=== PATIENT | female | born 1995 | race Two or more races ===

== ENCOUNTER 2017-01-11 20:31 | Emergency (ER) | payer SELFPAY ==
[2017-01-11 20:41] VITALS: BP 119/68
[2017-01-11] MEDS ORDERED: LIDOCAINE 4%/TETRACAINE 0.5%/EPI 0.18% 5 ML TOPICAL SOLN TOP ONE (21:38)
--- NOTE | 2017-01-11 21:39 | ER Document Report ---
HPI - HPI Patient complains to provider of: Right thumb laceration Pain Level: 4 Context: Patient is a 21-year-old female presents emergency department with a superficial laceration on the dorsal surface of the right thumb. Patient states that she should cut herself with a knife unintentionally. Tetanus is up- to-date - REPRODUCTIVE LMP: 12/26/2016 - MUSCULOSKELETAL Musculoskeletal: REPORTS: Extremity pain - Superficial lac to R thumb Past Medical History - Social History Smoking Status: Never Smoker Chew tobacco use (# tins/day): No Frequency of alcohol use: Social Drug Abuse: None Family History: Reviewed & Not Pertinent Patient has suicidal ideation: No Patient has homicidal ideation: No Renal/ Medical History: Denies: Hx Peritoneal Dialysis Vertical Provider Document - CONSTITUTIONAL Agree With Documented VS: Yes Notes: PHYSICAL EXAM GENERAL: Alert, interacts well. HEAD: Normocephalic, atraumatic. EXTREMITIES: Moves all 4 extremities spontaneously. No edema, radial and dorsalis pedis pulses 2/4 bilaterally. No cyanosis. NEUROLOGICAL: Alert and oriented x4. Normal speech. PSYCH is normal affect, normal mood. SKIN: Warm, dry, normal turgor. 1 cm laceration superficial without active bleeding over dorsal right thumb distal phalanx - INFECTION CONTROL TRAVEL OUTSIDE OF THE [place] IN LAST 30 DAYS: No - RESPIRATORY O2 Sat by Pulse Oximetry: 99 Course - Re-evaluation Re-evalutation: 01/11/17 22:39 Patient is a 21-year-old female hemodynamic stable, no acute distress. Wound is dehisced on exam the patient declining sutures. Steri-Strip closed and splint applied. Patient educated on wound care - Vital Signs Vital signs: Temp Pulse Resp BP Pulse Ox 98.3 F 88 20 119/68 99 01/11/17 20:41 01/11/17 20:41 01/11/17 20:41 01/11/17 20:41 01/11/17 20:41 Procedures - Laceration/Wound Repair Right Thumb Wound length (cm): 1 Wound's Depth, Shape: Linear Laceration pre-procedure: Sterile PPE donned, Betadine prep applied Wound explored: Clean, No foreign body removed Wound Repaired With: Steri-strips Post-procedure wound care: Splint applied Post-procedure NV exam normal: Yes Complications: No Discharge - Discharge Clinical Impression: Laceration Condition: Good Disposition: HOME, SELF-CARE Instructions: Non-Sutured Laceration ([facility])
[2017-01-11] MEDS ORDERED: LIDOCAINE 1% INJ-PF (10 MG/ML) 30 ML SDV ONE (22:11)
== END 2017-01-11 22:50 | disposition home or self-care (01) ==
LOC: ER 20:31
PROC: 0HQFXZZ Repair Right Hand Skin, External Approach (ICD-10-PCS; principal; 2017-01-11)
DX: S61.011A Laceration without foreign body of right thumb without damage to nail, initial encounter (principal); W26.0XXA Contact with knife, initial encounter
CPT/HCPCS: 99282; 12001; J3490

== ENCOUNTER 2017-02-12 11:45 | Emergency (ER) | payer SELFPAY ==
[2017-02-12] MEDS ORDERED: ONDANSETRON 4 MG TAB.RAPDIS PO ONE (11:56)
[2017-02-12] MEDS ORDERED: OXYCODONE-ACETAMINOPHEN 5-325 MG TABLET PO ONE (11:56)
--- NOTE | 2017-02-12 12:03 | ER Document Report ---
ED Hand/Wrist Injury - General Chief Complaint: Hand Injury Stated Complaint: HAND PAIN Time Seen by Provider: 02/12/17 11:53 Mode of Arrival: Ambulatory Information source: Patient, [facility] Records Notes: 21-year-old female patient reports punching a wall several times about 1 AM this morning with her left hand. She has pain and swelling over the fourth and fifth metacarpal heads. She is concerned about a fracture. There is swelling bruising and pain over the metacarpal heads. Patient reports her last menstrual period was 01/20/2017 and there is a possibility she may have become . TRAVEL OUTSIDE OF THE [place] IN LAST 30 DAYS: No - Related Data Allergies/Adverse Reactions: No Known Allergies Allergy (Verified 02/12/17 11:45) Past Medical History - General Information source: Patient, [facility] Records - Social History Smoking Status: Never Smoker Cigarette use (# per day): No Chew tobacco use (# tins/day): No Smoking Education Provided: No Frequency of alcohol use: Occasional Drug Abuse: None Occupation: Unemployed Lives with: Friend Family History: Reviewed & Not Pertinent - Medical History Medical History: Negative Surgical Hx: Negative Review of Systems - Review of Systems Constitutional: No symptoms reported EENT: No symptoms reported Cardiovascular: No symptoms reported Respiratory: No symptoms reported Gastrointestinal: No symptoms reported Genitourinary: No symptoms reported Female Genitourinary: See HPI, Last menstrual period - 01/20/2017 Musculoskeletal: See HPI Skin: No symptoms reported Hematologic/Lymphatic: No symptoms reported Neurological/Psychological: No symptoms reported Physical Exam - Vital signs Vitals: Temp Pulse Resp BP Pulse Ox 98.4 F 98 H 18 120/75 100 02/12/17 11:56 02/12/17 11:56 02/12/17 11:56 02/12/17 11:56 02/12/17 11:56 - General General appearance: Appears well, Alert In distress: None - HEENT Head: Normocephalic, Atraumatic Eyes: Normal Pupils: PERRL Neck: Normal - Respiratory Respiratory status: No respiratory distress - Cardiovascular Rhythm: Regular Heart sounds: Normal auscultation Murmur: No - Abdominal Inspection: Normal - Back Back: Normal - Extremities General upper extremity: Other - The left hand has pain, swelling, ecchymosis over the dorsal fourth and fifth metacarpal heads. There may be some depression at the fifth metacarpal head. X-rays will show if this is the case. General lower extremity: Normal inspection - Neurological Neuro grossly intact: Yes - Psychological Associated symptoms: Normal affect, Normal mood - Skin Skin Temperature: Warm Skin Moisture: Dry Skin Color: Normal Course - Re-evaluation Re-evalutation: 02/12/17 13:34 The ulnar gutter splint was placed on the left forearm wrist and hand by the PCT. Fits well. The fingertips have good sensation capillary refill. Patient states it is quite comfortable and makes the fracture feel better. A sling was placed and that provides support and elevation of the hand and also increases the patient's comfort. - Vital Signs Vital signs: Temp Pulse Resp BP Pulse Ox 98.4 F 98 H 18 120/75 100 02/12/17 11:56 02/12/17 11:56 02/12/17 11:56 02/12/17 11:56 02/12/17 11:56 - Diagnostic Test Radiology reviewed: Image reviewed, Reports reviewed - Minimally angulated fifth metacarpal neck fracture Discharge - Discharge Clinical Impression: Boxers fracture Qualifiers: Encounter type: initial encounter Fracture type: closed Qualified Code(s): S62.339A - Displaced fracture of neck of unspecified metacarpal bone, initial encounter for closed fracture Condition: Stable Disposition: HOME, SELF-CARE Additional Instructions: Fractured Fifth Metacarpal (Boxer's) You have a fracture of the fifth metacarpal bone in the hand, often called a Boxer's Fracture. The fracture is usually caused by striking the knuckle against a hard surface -- such as hitting a wall with the fist. This fracture heals well. Some degree of angle in the fracture is perfectly acceptable, resulting in only a slightly rounder knuckle. Your physician has determined whether your fracture could benefit from "setting", and has outlined a treatment plan for you. The usual treatment is splinting for four to six weeks -- a cast is not usually necessary. At first, the injury should be elevated and ice packed. Contact the doctor at once if swelling or pain becomes severe, or if numbness develops. //////////////////////////////////////////////////////////////////////////////// //////////////////////////////////////////////////////////////////////////////// Keep the splint clean and dry. Elevate the hand as much possible. Take the pain medications as prescribed if Tylenol and ibuprofen does not control the pain. Follow-up with [facility]--call tomorrow for an appointment in the next 3-5 days. RETURN TO THE EMERGENCY ROOM IF ANY NEW OR WORSENING SYMPTOMS. Prescriptions: Hydrocodone/Acetaminophen [Hydrocodon-Acetaminophen 5-325] 1 each PO ASDIR PRN # 15 tablet PRN Reason: Referrals: [facility] ([place]) [Provider Group] - Follow up in 3-5 days (Call on Sunday for an appointment.)
--- NOTE | 2017-02-12 12:37 | RADIOLOGY REPORT (SQ) ---
EXAM DESCRIPTION: HAND LEFT 3 VIEWS COMPLETED DATE/TIME: 02/12/2017 12:25 pm REASON FOR STUDY: punched wall, LMP 01/20/17--might be COMPARISON: None. EXAM PARAMETERS: NUMBER OF VIEWS: Three views. TECHNIQUE: AP, lateral and oblique radiographic images acquired of the left hand. LIMITATIONS: None. FINDINGS: MINERALIZATION: Normal. BONES: Mildly displaced and angulated fracture 5th metacarpal head/neck. Bones otherwise intact. JOINTS: No effusions. SOFT TISSUES: Associated soft tissue swelling. OTHER: No other significant finding. IMPRESSION: 5TH METACARPAL HEAD/ NECK FRACTURE ABOVE. TECHNICAL DOCUMENTATION: JOB ID: [id number] [employer]- All Rights Reserved
[2017-02-12 13:37] VITALS: BP 117/69
== END 2017-02-12 13:37 | disposition home or self-care (01) ==
LOC: ER 11:45
DX: S62.337A Displaced fracture of neck of fifth metacarpal bone, left hand, initial encounter for closed fracture (principal); W22.01XA Walked into wall, initial encounter
CPT/HCPCS: 99283

== ENCOUNTER 2017-03-03 19:04 | Emergency (ER) | payer SELFPAY ==
--- NOTE | 2017-03-03 20:23 | ER Document Report ---
ED Medical Screen (RME) - General Chief Complaint: Vag Bleeding, +preg <12wks Stated Complaint: VAGINAL BLEEDING Time Seen by Provider: 03/03/17 20:12 Mode of Arrival: Ambulatory Information source: Patient Notes: 21-year-old female who is 6 week that presents today with complaints of lower abdominal cramping. Patient states she has had vaginal bleeding yesterday which increased today but it is still less than a normal period. Patient states her last menstrual period was on January 20. Patient is . Patient denies any nausea, vomiting, diarrhea, fevers, or passing blood clots. TRAVEL OUTSIDE OF THE [place] IN LAST 30 DAYS: No - Related Data Allergies/Adverse Reactions: No Known Allergies Allergy (Verified 02/12/17 11:45) Past Medical History - General Information source: [facility] Records Renal/ Medical History: Denies: Hx Peritoneal Dialysis Review of Systems - Review of Systems Constitutional: denies: Fever Gastrointestinal: See HPI, Abdominal pain. denies: Diarrhea, Nausea, Vomiting Female Genitourinary: See HPI, Physical Exam - Vital signs Vitals: Temp Pulse Resp BP Pulse Ox 98.2 F 87 14 127/72 H 99 03/03/17 19:19 03/03/17 19:19 03/03/17 19:19 03/03/17 19:19 03/03/17 19:19 - General General appearance: Appears well In distress: None - HEENT Head: Normocephalic, Atraumatic Eyes: Normal Conjunctiva: Normal Cornea: Normal - Respiratory Respiratory status: No respiratory distress Breath sounds: Normal - Cardiovascular Rhythm: Regular Heart sounds: Normal auscultation Murmur: No - Abdominal Inspection: Normal Distension: No distension Bowel sounds: Normal Course - Vital Signs Vital signs: Temp Pulse Resp BP Pulse Ox 98.2 F 87 14 127/72 H 99 03/03/17 19:19 03/03/17 19:19 03/03/17 19:19 03/03/17 19:19 03/03/17 19:19 Scribe Documentation - Scribe Written by Scribe:: Lesia Levi, 03/03/20172022 acting as scribe for :: Massimo
[2017-03-03 20:37] LABS: ABSOLUTE MONOCYTES (AUTO) 0.6 10^3/uL (0.1-1.4); ABSOLUTE NEUT (AUTO) 4.1 10^3/uL (1.7-8.2); BASOPHILS % (AUTO) 0.6 % (0-2); EOSINOPHILS % (AUTO) 0.7 % (0-6); HEMATOCRIT 35.7 % (36.0-47.0); LYMPHOCYTES % (AUTO) 29.4 % (13-45); MEAN CORPUSCULAR HEMOGLOBIN 30.3 pg (27.0-33.4); MEAN CORPUSCULAR HGB CONC 33.6 g/dL (32.0-36.0); MEAN CORPUSCULAR VOLUME 90 fl (80-97); MONOCYTES % (AUTO) 8.4 % (3-13); PLATELET COUNT 349 10^3/uL (150-450); RED BLOOD COUNT 3.96 10^6/uL (3.72-5.28); RED CELL DISTRIBUTION WIDTH 13.2 % (11.5-14.0); SEGMENTED NEUTROPHILS % (AUTO) 60.9 % (42-78); TOTAL CELLS COUNTED % (AUTO) 100 %; WHITE BLOOD COUNT 6.7 10^3/uL (4.0-10.5)
[2017-03-03 20:54] LABS: AMORPHOUS SEDIMENT,URINE TRACE /HPF; APPEARANCE,URINE SLIGHTLY-CLOUDY; BILIRUBIN,URINE NEGATIVE (NEGATIVE); COLOR,URINE YELLOW; GLUCOSE, URINE NEGATIVE (NEGATIVE); KETONES,URINE TRACE mg/dL (NEGATIVE); LEUKOCYTE ESTERASE,URINE NEGATIVE (NEGATIVE); NITRITE,URINE NEGATIVE (NEGATIVE); PROTEIN,URINE NEGATIVE (NEGATIVE)
--- NOTE | 2017-03-03 22:11 | ER Document Report ---
ED GI/ - General Chief Complaint: Vag Bleeding, +preg <12wks Stated Complaint: VAGINAL BLEEDING Time Seen by Provider: 03/03/17 20:12 Mode of Arrival: Ambulatory Notes: 21-year-old female patient. Second . Rh+. Spotting began yesterday. Denies any pain. Here to find out of her baby is okay. TRAVEL OUTSIDE OF THE [place] IN LAST 30 DAYS: No - HPI Patient complains to provider of: Onset: Yesterday Timing/Duration: Gradual Quality of pain: No pain Severity at maximum: Mild Severity in ED: Mild Pain Level: 0 - Related Data Allergies/Adverse Reactions: No Known Allergies Allergy (Verified 02/12/17 11:45) Past Medical History - General Information source: Patient, [facility] Records Last Menstrual Period: 01/20/17 - Social History Smoking Status: Never Smoker Chew tobacco use (# tins/day): No Frequency of alcohol use: Occasional Drug Abuse: None Lives with: Spouse/Significant other Family History: Reviewed & Not Pertinent Patient has suicidal ideation: No Patient has homicidal ideation: No - Past Medical History Cardiac Medical History: Reports: None Pulmonary Medical History: Reports: Hx Asthma EENT Medical History: Reports: None Neurological Medical History: Reports: None Endocrine Medical History: Reports: None Renal/ Medical History: Reports: None. Denies: Hx Peritoneal Dialysis Malignancy Medical History: Reports: None GI Medical History: Reports: None Musculoskeltal Medical History: Reports None Skin Medical History: Reports None Psychiatric Medical History: Reports: None Traumatic Medical History: Reports: None Review of Systems - Review of Systems Constitutional: No symptoms reported EENT: No symptoms reported Cardiovascular: No symptoms reported Respiratory: No symptoms reported Gastrointestinal: No symptoms reported Genitourinary: No symptoms reported Female Genitourinary: , Vaginal bleeding Musculoskeletal: No symptoms reported Skin: No symptoms reported Hematologic/Lymphatic: No symptoms reported Neurological/Psychological: No symptoms reported Physical Exam - Vital signs Vitals: Temp Pulse Resp BP Pulse Ox 98.2 F 87 14 127/72 H 99 03/03/17 19:19 03/03/17 19:19 03/03/17 19:19 03/03/17 19:19 03/03/17 19:19 Interpretation: Normal - General General appearance: Appears well, Alert - HEENT Head: Normocephalic, Atraumatic Eyes: Normal Pupils: PERRL - Respiratory Respiratory status: No respiratory distress Chest status: Nontender Breath sounds: Normal Chest palpation: Normal - Cardiovascular Rhythm: Regular Heart sounds: Normal auscultation Murmur: No - Abdominal Inspection: Normal Distension: No distension Bowel sounds: Normal Tenderness: Nontender Organomegaly: No organomegaly - Back Back: Normal, Nontender - Extremities General upper extremity: Normal inspection, Nontender, Normal color, Normal ROM , Normal temperature General lower extremity: Normal inspection, Nontender, Normal color, Normal ROM , Normal temperature, Normal weight bearing. No: Bess's sign - Neurological Neuro grossly intact: Yes Cognition: Normal Orientation: AAOx4 [place] Coma Scale Eye Opening: Spontaneous [place] Coma Scale Verbal: Oriented Gael Coma Scale Motor: Obeys Commands [place] Coma Scale Total: 15 Speech: Normal Motor strength normal: LUE, RUE, LLE, RLE Sensory: Normal - Psychological Associated symptoms: Normal affect, Normal mood - Skin Skin Temperature: Warm Skin Moisture: Dry Skin Color: Normal Course - Re-evaluation Re-evalutation: 03/03/17 22:10 Is a pleasant well-appearing 21-year-old female in no acute distress with no significant abdominal pain. Rh+ based on labs. 03/03/17 22:11 Ultrasound shows intrauterine . 6 weeks. Positive heart movement. Strict warning signs were given regarding threatened miscarriage. Has OB follow-up. Will DC at this time. 03/03/17 22:25 Laboratory 03/03/17 03/03/17 03/03/17 20:26 20:26 20:26 WBC 6.7 RBC 3.96 Hgb 12.0 Hct 35.7 L MCV 90 MCH 30.3 MCHC 33.6 RDW 13.2 Plt Count 349 Seg Neutrophils % 60.9 Lymphocytes % 29.4 Monocytes % 8.4 Eosinophils % 0.7 Basophils % 0.6 Absolute Neutrophils 4.1 Absolute Lymphocytes 2.0 Absolute Monocytes 0.6 Absolute Eosinophils 0.0 Absolute Basophils 0.0 Beta HCG, Quant 16138.00 H Total Beta HCG POSITIVE Urine Color Urine Appearance Urine pH Ur Specific [place] Urine Protein Urine Glucose (UA) Urine Ketones Urine Blood Urine Nitrite Urine Bilirubin Urine Urobilinogen Ur Leukocyte Esterase Urine WBC (Auto) Squamous Epi Cells Auto Amorphous Sediment Auto Urine Mucus (Auto) Urine Ascorbic Acid Blood Type A POSITIVE Rhogam Indicated RHOGAM NOT INDICATED 03/03/17 20:26 WBC RBC Hgb Hct MCV MCH MCHC RDW Plt Count Seg Neutrophils % Lymphocytes % Monocytes % Eosinophils % Basophils % Absolute Neutrophils Absolute Lymphocytes Absolute Monocytes Absolute Eosinophils Absolute Basophils Beta HCG, Quant Total Beta HCG Urine Color YELLOW Urine Appearance SLIGHTLY-CLOUDY Urine pH 6.0 Ur Specific [place] 1.030 Urine Protein NEGATIVE Urine Glucose (UA) NEGATIVE Urine Ketones TRACE H Urine Blood NEGATIVE Urine Nitrite NEGATIVE Urine Bilirubin NEGATIVE Urine Urobilinogen 4.0 H Ur Leukocyte Esterase NEGATIVE Urine WBC (Auto) 1 Squamous Epi Cells Auto 4 Amorphous Sediment Auto TRACE Urine Mucus (Auto) RARE Urine Ascorbic Acid NEGATIVE Blood Type Rhogam Indicated Obstetrics Ultrasound 03/03/17 20:17 IMPRESSION: LIVING INTRAUTERINE . EGA 5 weeks, 6 days Trimester of : First - 0 to 13 weeks. - Vital Signs Vital signs: Temp Pulse Resp BP Pulse Ox 98.2 F 87 14 127/72 H 99 03/03/17 19:19 03/03/17 19:19 03/03/17 19:19 03/03/17 19:19 03/03/17 19:19 - Laboratory Result Diagrams: 03/03/17 20:26 Laboratory results interpreted by me: 03/03/17 03/03/17 03/03/17 20:26 20:26 20:26 Hct 35.7 L Beta HCG, Quant 93386.00 H Urine Ketones TRACE H Urine Urobilinogen 4.0 H Discharge - Discharge Clinical Impression: Threatened in early Condition: Good Disposition: HOME, SELF-CARE Instructions: Bleeding During Early ([facility]), ([facility]), Threatened Miscarriage ([facility]) Additional Instructions: As instructed, return to the emergency department if soaking more than 2 pads per hour for 2 hours, severe pain, feeling like you are going to pass out or for any other concerns. Referrals: BARBIE GARCIA MD [ACTIVE STAFF] - Follow up in 3-5 days
--- NOTE | 2017-03-03 22:22 | RADIOLOGY REPORT (SQ) ---
EXAM DESCRIPTION: U/S OB TRANSVAGINAL W/O DOP COMPLETED DATE/TIME: 03/03/2017 10:03 pm REASON FOR STUDY: Vag bleeding, COMPARISON: None. TECHNIQUE: Transvaginal static and realtime grayscale images acquired of the pelvis. Additional nitin cted spectral and color Doppler images recorded. All images stored on PACs. [id number] LIMITATIONS: None. FINDINGS: FETUS: Living intrauterine . EGA: 5 weeks, 6 days FHR: 108 beats per minute. SUBCHORIONIC BLEED: No SIZE OF BLEED: Not applicable. UTERUS: No masses. No anomalies. CERVICAL LENGTH: 3.7 cm Closed. RIGHT ADNEXA: Normal ovary with normal vascular flow. No adnexal free fluid. No adnexal masses. LEFT ADNEXA: Ovary not identified. No adnexal free fluid. No adnexal masses. FREE FLUID: A small amount of free fluid is seen within the pelvic cul-de-sac. OTHER: No other significant finding. IMPRESSION: LIVING INTRAUTERINE . EGA 5 weeks, 6 days Trimester of : First - 0 to 13 weeks. TECHNICAL DOCUMENTATION: JOB ID: [id number] [employer]- All Rights Reserved
[2017-03-03 22:37] VITALS: BP 110/66
== END 2017-03-03 22:38 | disposition home or self-care (01) ==
LOC: ER 19:04
DX: O20.0 Threatened abortion (principal); Z3A.01 Less than 8 weeks gestation of pregnancy
CPT/HCPCS: 36415; 76817; 81001; 84702; 85025; 86900; 86901; 99284

== ENCOUNTER 2017-03-31 19:28 | Emergency (ER) | payer MEDICAID ==
--- NOTE | 2017-03-31 20:36 | ER Document Report ---
ED Medical Screen (RME) - General Mode of Arrival: Ambulatory Information source: Patient <MANDY OLSEN V - Last Filed: 04/01/17 00:58> - General Mode of Arrival: Ambulatory Information source: Patient TRAVEL OUTSIDE OF THE [place] IN LAST 30 DAYS: No - HPI Onset: Just prior to arrival Onset/Duration: Sudden Quality of pain: Cramping - VERY SLIGHT Severity: Mild Associated Symptoms: None Exacerbated by: Denies Relieved by: Denies Similar symptoms previously: No Recently seen / treated by doctor: No - Related Data Smoking: Non-smoker Frequency of alcohol use: None Drug Abuse: None <SEKOU PHIPPS - Last Filed: 04/01/17 19:37> - General Chief Complaint: Vag Bleeding, +preg <12wks Stated Complaint: VAGINAL BLEEDING Time Seen by Provider: 03/31/17 20:28 - HPI Notes: 04/01/17 00:10 21-year-old who is at approximately 12 weeks gestation who presented today for evaluation of spotting. Her spotting started today. Patient denies any abdominal pain or dizziness. Patient denies any passage of clots or tissue. Patient had similar symptoms approximately 10 days ago and had ultrasound that revealed intrauterine . Patient denies any vaginal discharge. Patient unsure of her group type and Rh factor. Bleeding is stopped at present time. Patient did not establish care with ASSISTANT KITCHEN MANAGER at present time. (RAÚLMANDY Sarah) - Related Data Allergies/Adverse Reactions: No Known Allergies Allergy (Verified 02/12/17 11:45) Past Medical History - General Information source: Patient Last Menstrual Period: 01/20/17 - Social History Cigarette use (# per day): No Chew tobacco use (# tins/day): No Frequency of alcohol use: None Drug Abuse: None Lives with: Spouse/Significant other Family history: None - Past Medical History Cardiac Medical History: Reports: None Pulmonary Medical History: Reports: Hx Asthma EENT Medical History: Reports: None Neurological Medical History: Reports: None Endocrine Medical History: Reports: None Renal/ Medical History: Reports: None. Denies: Hx Peritoneal Dialysis Malignancy Medical History: Reports: None GI Medical History: Reports: None Musculoskeltal Medical History: Reports None Psychiatric Medical History: Reports: None Surgical Hx: Negative <SEKOU PHIPPS - Last Filed: 04/01/17 19:37> Review of Systems <MANDY OLSEN V - Last Filed: 04/01/17 00:58> - Review of Systems Constitutional: No symptoms reported EENT: No symptoms reported Cardiovascular: No symptoms reported Gastrointestinal: No symptoms reported Genitourinary: No symptoms reported Female Genitourinary: See HPI, Musculoskeletal: No symptoms reported Skin: No symptoms reported Neurological/Psychological: No symptoms reported <SEKOU PHIPPS - Last Filed: 04/01/17 19:37> - Review of Systems Notes: REVIEW OF SYSTEMS: CONSTITUTIONAL: -fevers, -chills EENT: -eye pain, -difficulty swallowing, -nasal congestion CARDIOVASCULAR: -chest pain, -syncope. RESPIRATORY: -cough, -SOB GASTROINTESTINAL: -abdominal pain, -nausea, -vomiting, -diarrhea GENITOURINARY: -dysuria, -hematuria, + vaginal bleeding MUSCULOSKELETAL: -back pain, -neck pain SKIN: -rash or skin lesions. HEMATOLOGIC: -easy bruising or bleeding. LYMPHATIC: -swollen, enlarged glands. NEUROLOGICAL: -altered mental status or loss of consciousness, -headache, - neurologic symptoms PSYCHIATRIC: -anxiety, -depression. ALL OTHER SYSTEMS REVIEWED AND NEGATIVE. (MANDY OLSEN V) Physical Exam <MANDY OLSEN V - Last Filed: 04/01/17 00:58> - Vital signs Interpretation: Normal. No: Hypotensive, Tachycardic, Tachypneic - General General appearance: Appears well, Alert In distress: None - HEENT Head: Normocephalic Eyes: Normal Conjunctiva: Normal Ears: Normal Nasal: Normal Mouth/Lips: Normal Mucous membranes: Normal - Respiratory Respiratory status: No respiratory distress - Cardiovascular Rhythm: Regular - Abdominal Inspection: Normal - Extremities General upper extremity: Normal inspection General lower extremity: Normal inspection - Neurological Neuro grossly intact: Yes Cognition: Normal Orientation: AAOx4 - Psychological Associated symptoms: Normal affect, Normal mood - Skin Skin Temperature: Warm Skin Moisture: Dry Skin Color: Normal Skin Turgor: Elastic <SEKOU PHIPPS - Last Filed: 04/01/17 19:37> - Vital signs Vitals: Temp Pulse Resp BP Pulse Ox 98.4 F 73 18 116/66 100 03/31/17 19:38 03/31/17 19:38 03/31/17 19:38 03/31/17 19:38 03/31/17 19:38 - Notes Notes: Reviewed vital signs and nursing note as charted by RN. CONSTITUTIONAL: Alert and oriented and responds appropriately to questions HEAD: Normocephalic; atraumatic EYES: PERRL; Conjunctivae clear, sclerae non-icteric ENT: normal nose NECK: Supple CARD: Regular rate and rhythm; no murmurs, no clicks, no rubs, no gallops; symmetric distal pulses RESP: Normal chest excursion without splinting or tachypnea; breath sounds clear and equal bilaterally ABD/GI: Normal bowel sounds; non-distended; soft, no tenderness to palpation :Vaginal examination was performed with exhaust emissions inspector in the room, Patient has normal genitalia, intravaginal examination with no clots or tissue noted from the os, no CMT tenderness, no vaginal bleeding, no foreign bodies BACK: The back appears normal and is non-tender to palpation EXT: Normal ROM in all joints; non-tender to palpation; no cyanosis, no effusions, no edema SKIN: Normal color for age and race; warm; dry; good turgor; capillary refill < 2 seconds; no acute lesions noted NEURO: .Cranial nerves 3-12 intact. Motor strength 5/5 bilaterally. Sensation intact to touch bilaterally. No pronator drift. Finger to nose intact bilaterally PSYCH: The patient's mood and manner are appropriate. Grooming and personal hygiene are appropriate. (MANDY OLSEN V) Course - Laboratory Result Diagrams: 03/31/17 20:42 <MANDY OLSEN V - Last Filed: 04/01/17 00:58> - Laboratory Result Diagrams: 03/31/17 20:42 <SEKOU PHIPPS - Last Filed: 04/01/17 19:37> - Re-evaluation Re-evalutation: 04/01/17 00:12 21-year-old who is at 12 weeks gestation presented today for evaluation of vaginal spotting Differential diagnosis includes vaginal bleeding in first trimester, miscarriage , anemia, sexually transmitted infection Patient had ultrasound with this that revealed intrauterine gestation Bedside ultrasound confirmed intrauterine with heart tones of 150 We will obtain basic lab work including CBC, beta quant as well as RhoGam workup We will send off a wet prep as well as GC swab Reassess patient 04/01/17 00:58 Patient is doing well, patient is Rh+ therefore no need for RhoGam Wet prep with no trichomonas GC was sent No more bleeding Discussed results of imaging and lab work and workup with patient, agree with disposition today Patient will follow up with ASSISTANT KITCHEN MANAGER next week (MANDY OLSEN V) - Vital Signs Vital signs: Temp Pulse Resp BP Pulse Ox 98.3 F 72 16 123/55 L 100 04/01/17 01:05 04/01/17 01:05 04/01/17 01:05 04/01/17 01:05 04/01/17 01:05 - Laboratory Laboratory results interpreted by me: 03/31/17 20:42 Beta HCG, Quant 287831.00 H Doctor's Discharge <MANDY OLSEN V - Last Filed: 04/01/17 00:58> <SEKOU PHIPPS - Last Filed: 04/01/17 19:37> - Discharge Clinical Impression: Vaginal bleeding in patient at less than 20 weeks gestation Condition: Stable Disposition: HOME, SELF-CARE Instructions: Vaginal Bleeding ([facility]) Additional Instructions: Please follow-up with your ASSISTANT KITCHEN MANAGER doctors Come back if you have worsening abdominal pain, fevers, vaginal bleeding, tissue passing from the vagina
[2017-03-31 21:29] LABS: ABSOLUTE EOSINOPHILS # (AUTO) 0.1 10^3/uL (0.0-0.6); ABSOLUTE LYMPHOCYTES (AUTO) 2.2 10^3/uL (0.5-4.7); ABSOLUTE MONOCYTES (AUTO) 0.6 10^3/uL (0.1-1.4); ABSOLUTE NEUT (AUTO) 4.4 10^3/uL (1.7-8.2); BASOPHILS % (AUTO) 0.6 % (0-2); EOSINOPHILS % (AUTO) 0.8 % (0-6); HEMATOCRIT 36.6 % (36.0-47.0); HEMOGLOBIN 12.6 g/dL (12.0-15.5); LYMPHOCYTES % (AUTO) 30.2 % (13-45); MEAN CORPUSCULAR HEMOGLOBIN 31.5 pg (27.0-33.4); MEAN CORPUSCULAR HGB CONC 34.3 g/dL (32.0-36.0); MEAN CORPUSCULAR VOLUME 92 fl (80-97); MONOCYTES % (AUTO) 7.8 % (3-13); PLATELET COUNT 303 10^3/uL (150-450); RED BLOOD COUNT 3.99 10^6/uL (3.72-5.28); RED CELL DISTRIBUTION WIDTH 13.8 % (11.5-14.0); SEGMENTED NEUTROPHILS % (AUTO) 60.6 % (42-78); TOTAL CELLS COUNTED % (AUTO) 100 %; WHITE BLOOD COUNT 7.3 10^3/uL (4.0-10.5)
[2017-04-01 00:11] LABS: T.VAGINALIS (WET MOUNT) NO TRICHOMONAS SEEN; YEAST (WET MOUNT) NO YEAST SEEN
[2017-04-01 00:12] LABS: EPITHELIALS (WET MOUNT) 3+ EPITHELIALS SEEN; RBCS (WET MOUNT) RARE RBCS SEEN; WBCS (WET MOUNT) FEW WBCS SEEN
[2017-04-01 01:07] VITALS: BP 123/55
[2017-04-01 01:45] LABS: CHLAM PCR NOT DETECTED (NOT DETECT); GON PCR NOT DETECTED (NOT DETECT)
== END 2017-04-01 01:35 | disposition home or self-care (01) ==
LOC: ER 19:28
DX: O20.9 Hemorrhage in early pregnancy, unspecified (principal); Z3A.12 12 weeks gestation of pregnancy
CPT/HCPCS: 36415; 84702; 85025; 86900; 86901; 87210; 87491; 87591; 99284

== ENCOUNTER → 2018-01-01 | Outpatient (CLI) | payer MEDICAID ==
[2018-01-01 16:35] LABS: BACTERIA (WET MOUNT) 4+ BACTERIA SEEN; EPITHELIALS (WET MOUNT) 4+ EPITHELIALS SEEN; RBCS (WET MOUNT) FEW RBCS SEEN; T.VAGINALIS (WET MOUNT) NO TRICHOMONAS SEEN; WBCS (WET MOUNT) 4+ WBCS SEEN; YEAST (WET MOUNT) NO YEAST SEEN
[2018-01-01 18:10] LABS: CHLAM PCR NOT DETECTED (NOT DETECT); GON PCR NOT DETECTED (NOT DETECT)
== END ==
LOC: LAB 15:50
PROVIDERS: ATTEND Nurse Practitioner Family
DX: R30.0 Dysuria (principal); R10.2 Pelvic and perineal pain
CPT/HCPCS: 87210; 87491; 87591

== ENCOUNTER 2019-10-26 09:18 | Emergency (ER) | payer SELFPAY ==
[2019-10-26 09:31] VITALS: BP 111/67
--- NOTE | 2019-10-26 09:55 | ER Document Report ---
ED GI/ - General Chief Complaint: Flank Pain Stated Complaint: FLANK PAIN Time Seen by Provider: 10/26/19 09:43 Primary Care Provider: JAYLAN CARTWRIGHT NP [NURSE PRACTITIONER] - Follow up as needed Mode of Arrival: Ambulatory Information source: Patient Notes: Otherwise healthy 24-year-old female presents emergency department with 3-month history of intermittent low back and flank pain. Patient reports the pain is on both sides, she states it comes and goes, she states it feels sharp and stabbing when it is present. She thinks it might be something to do with her kidneys. She denies any history of previous kidney issues, she does report that she has frequent urinary tract infections, she states she has no medical insurance so she buys medications off of [facility] for her symptoms. She has not had fever, chills, nausea, vomiting, diarrhea. She denies any pelvic pain or abnormal vaginal discharge. TRAVEL OUTSIDE OF THE [place] IN LAST 30 DAYS: No - Related Data Allergies/Adverse Reactions: No Known Allergies Allergy (Verified 10/26/19 11:02) Past Medical History - General Information source: Patient - Social History Smoking Status: Never Smoker Frequency of alcohol use: None Drug Abuse: None Family History: Reviewed & Not Pertinent Pulmonary Medical History: Reports: Hx Asthma Renal/ Medical History: Denies: Hx Peritoneal Dialysis Surgical Hx: Negative - Immunizations Immunizations up to date: Yes Review of Systems - Review of Systems Musculoskeletal: See HPI -: Yes All other systems reviewed and negative Physical Exam - Vital signs Vitals: Temp Pulse Resp BP Pulse Ox 98.2 F 74 18 111/67 99 10/26/19 09:29 10/26/19 09:29 10/26/19 09:29 10/26/19 09:29 10/26/19 09:29 - Notes Notes: PHYSICAL EXAMINATION: GENERAL: Well-appearing, well-nourished and in no acute distress. HEAD: Atraumatic, normocephalic. EYES: Pupils equal round and reactive to light, extraocular movements intact, conjunctiva are normal. ENT: Nares patent, oropharynx clear without exudates. Moist mucous membranes. NECK: Normal range of motion, supple without lymphadenopathy LUNGS: Breath sounds clear to auscultation bilaterally and equal. No wheezes rales or rhonchi. HEART: Regular rate and rhythm without murmurs ABDOMEN: Soft, nontender, nondistended abdomen. No guarding, no rebound. No masses appreciated. Female : No CVA tenderness. Musculoskeletal: Normal range of motion, no pitting or edema. No cyanosis. NEUROLOGICAL: Cranial nerves grossly intact. Normal speech, normal gait. Normal sensory, motor exams PSYCH: Normal mood, normal affect. SKIN: Warm, Dry, normal turgor, no rashes or lesions noted. Course - Re-evaluation Re-evalutation: Laboratory 10/26/19 10/26/19 10/26/19 10:06 10:06 10:06 WBC 4.3 RBC 3.94 Hgb 12.9 Hct 35.6 L MCV 91 MCH 32.6 MCHC 36.1 H RDW 12.7 Plt Count 287 Lymph % (Auto) 41.0 [place] % (Auto) 9.0 Eos % (Auto) 1.6 Baso % (Auto) 1.2 Absolute Neuts (auto) 2.0 Absolute Lymphs (auto) 1.8 Absolute Monos (auto) 0.4 Absolute Eos (auto) 0.1 Absolute Basos (auto) 0.1 Seg Neutrophils % 47.2 Sodium 140.7 Potassium 4.5 Chloride 105 Carbon Dioxide 26 Anion Gap 10 BUN 10 Creatinine 0.61 Est GFR ( Amer) > 60 Est GFR (MDRD) Non-Af > 60 Glucose 117 H Calcium 9.2 Total Bilirubin 0.8 Direct Bilirubin 0.2 Neonat Total Bilirubin Not Reportable Neonat Direct Bilirubin Not Reportable Neonat Indirect Bili Not Reportable AST 20 ALT 11 Alkaline Phosphatase 49 Total Protein 7.6 Albumin 4.7 Lipase 99.4 Serum HCG, Qual NEGATIVE Urine Color Urine Appearance Urine pH Ur Specific [place] Urine Protein Urine Glucose (UA) Urine Ketones Urine Blood Urine Nitrite Urine Bilirubin Urine Urobilinogen Ur Leukocyte Esterase Urine WBC (Auto) Urine RBC (Auto) Urine Bacteria (Auto) Squamous Epi Cells Auto Urine Mucus (Auto) Urine Ascorbic Acid 10/26/19 10:06 WBC RBC Hgb Hct MCV MCH MCHC RDW Plt Count Lymph % (Auto) [place] % (Auto) Eos % (Auto) Baso % (Auto) Absolute Neuts (auto) Absolute Lymphs (auto) Absolute Monos (auto) Absolute Eos (auto) Absolute Basos (auto) Seg Neutrophils % Sodium Potassium Chloride Carbon Dioxide Anion Gap BUN Creatinine Est GFR ( Amer) Est GFR (MDRD) Non-Af Glucose Calcium Total Bilirubin Direct Bilirubin Neonat Total Bilirubin Neonat Direct Bilirubin Neonat Indirect Bili AST ALT Alkaline Phosphatase Total Protein Albumin Lipase Serum HCG, Qual Urine Color YELLOW Urine Appearance CLEAR Urine pH 6.0 Ur Specific [place] 1.018 Urine Protein NEGATIVE Urine Glucose (UA) NEGATIVE Urine Ketones NEGATIVE Urine Blood NEGATIVE Urine Nitrite NEGATIVE Urine Bilirubin NEGATIVE Urine Urobilinogen NEGATIVE Ur Leukocyte Esterase NEGATIVE Urine WBC (Auto) 1 Urine RBC (Auto) 2 Urine Bacteria (Auto) TRACE Squamous Epi Cells Auto 4 Urine Mucus (Auto) RARE Urine Ascorbic Acid NEGATIVE - Vital Signs Vital signs: Temp Pulse Resp BP Pulse Ox 98.2 F 74 18 111/67 99 10/26/19 09:29 10/26/19 09:29 10/26/19 09:29 10/26/19 09:29 10/26/19 09:29 - Laboratory Result Diagrams: 10/26/19 10:06 10/26/19 10:06 Laboratory results interpreted by me: 10/26/19 10/26/19 10:06 10:06 Hct 35.6 L MCHC 36.1 H Glucose 117 H - Diagnostic Test Radiology reviewed: Reports reviewed Discharge - Discharge Clinical Impression: Low back pain Qualifiers: Chronicity: chronic Back pain laterality: bilateral Sciatica presence: without sciatica Qualified Code(s): M54.5 - Low back pain Condition: Stable Disposition: HOME, SELF-CARE Additional Instructions: Your work-up today was reassuring. Here blood work, urine and ultrasound were all normal. There is no evidence of any issue going on with your kidneys. There is no evidence of kidney infection or urinary tract infection. I believe your pain may be more muscular. We will try you out on a muscle relaxer. You may also try taking ibuprofen 600 mg every 6 hours. You may follow-up with the [facility], call them to try to set up an appointment. This clinic is for people they do not have insurance. Their phone number is in your discharge packet. Return to the emergency department with worsening symptoms to include development of fever greater than 101, persistent and worsening pain, vomiting or any other concerning symptom. Prescriptions: Methocarbamol [Robaxin 750 mg Tablet] 750 mg PO Q6HP PRN #30 tablet PRN Reason: Forms: Return to Work Referrals: JAYLAN CARTWRIGHT NP [NURSE PRACTITIONER] - Follow up as needed
[2019-10-26 10:34] LABS: ABSOLUTE BASOPHILS # (AUTO) 0.1 10^3/uL (0.0-0.2); ABSOLUTE EOSINOPHILS # (AUTO) 0.1 10^3/uL (0.0-0.6); ABSOLUTE LYMPHOCYTES (AUTO) 1.8 10^3/uL (0.5-4.7); ABSOLUTE MONOCYTES (AUTO) 0.4 10^3/uL (0.1-1.4); BASOPHILS % (AUTO) 1.2 % (0-2); EOSINOPHILS % (AUTO) 1.6 % (0-6); HEMATOCRIT 35.6 % (36.0-47.0); HEMOGLOBIN 12.9 g/dL (12.0-15.5); MEAN CORPUSCULAR HEMOGLOBIN 32.6 pg (27.0-33.4); MEAN CORPUSCULAR HGB CONC 36.1 g/dL (32.0-36.0); MEAN CORPUSCULAR VOLUME 91 fl (80-97); PLATELET COUNT 287 10^3/uL (150-450); RED BLOOD COUNT 3.94 10^6/uL (3.72-5.28); RED CELL DISTRIBUTION WIDTH 12.7 % (11.5-14.0); SEGMENTED NEUTROPHILS % (AUTO) 47.2 % (42-78); TOTAL CELLS COUNTED % (AUTO) 100 %; WHITE BLOOD COUNT 4.3 10^3/uL (4.0-10.5)
--- NOTE | 2019-10-26 10:38 | RADIOLOGY REPORT (SQ) ---
EXAM DESCRIPTION: U/S RETROPERITON (RENAL/AORTA) IMAGES COMPLETED DATE/TIME: 10/26/2019 10:23 am REASON FOR STUDY: bilateral flank pain COMPARISON: None. TECHNIQUE: Dynamic and static grayscale images acquired of the kidneys and bladder and recorded on P ACS. Additional selected color Doppler and spectral images recorded. LIMITATIONS: None. FINDINGS: RIGHT KIDNEY: Normal size. Normal echogenicity. No solid or suspicious masses. No hydronep hrosis. No calcifications. LEFT KIDNEY: Normal size. Normal echogenicity. No solid or suspicious masses. No hydronephrosis. No calcifications. BLADDER: Not visualized given recent voiding. OTHER FINDINGS: No other significant finding. IMPRESSION: Unremarkable sonographic appearance of the kidneys. Nonvisualization of the urinary bladder. TECHNICAL DOCUMENTATION: JOB ID: [id number] 2010 [employer]- All Rights Reserved Reading location - IP/workstation name: [email or web address]
[2019-10-26 10:44] LABS: APPEARANCE,URINE CLEAR; BILIRUBIN,URINE NEGATIVE (NEGATIVE); COLOR,URINE YELLOW; GLUCOSE, URINE NEGATIVE (NEGATIVE); KETONES,URINE NEGATIVE (NEGATIVE); LEUKOCYTE ESTERASE,URINE NEGATIVE (NEGATIVE); NITRITE,URINE NEGATIVE (NEGATIVE); PROTEIN,URINE NEGATIVE (NEGATIVE); URINE SPECIFIC GRAVITY 1.018; UROBILINOGEN,URINE NEGATIVE mg/dL (<2.0)
[2019-10-26 10:50] LABS: ALBUMIN 4.7 g/dL (3.5-5.0); ALKALINE PHOSPHATASE 49 U/L (38-126); ANION GAP 10 (5-19); ASPARTATE AMINO TRANSFERASE 20 U/L (14-36); BILIRUBIN,DIRECT 0.2 mg/dL (0.0-0.4); BILIRUBIN,TOTAL 0.8 mg/dL (0.2-1.3); BLOOD UREA NITROGEN 10 mg/dL (7-20); CALCIUM 9.2 mg/dL (8.4-10.2); CARBON DIOXIDE 26 mmol/L (22-30); CHLORIDE 105 mmol/L (98-107); GLUCOSE 117 mg/dL (75-110); POTASSIUM 4.5 mmol/L (3.6-5.0); TOTAL PROTEIN 7.6 g/dL (6.3-8.2)
== END 2019-10-26 11:10 | disposition home or self-care (01) ==
LOC: ER 09:18
DX: M54.5 Low back pain (principal); R10.9 Unspecified abdominal pain; J45.909 Unspecified asthma, uncomplicated; Z87.440 Personal history of urinary (tract) infections
CPT/HCPCS: 36415; 76770; 80053; 81001; 83690; 84703; 85025; 99284